=== PATIENT | male | born 1965 | race Caucasian/White ===

== ENCOUNTER → 2021-01-28 | Outpatient (CLI) | payer OTHER | LOC: HEART CORB 08:30 | DX: I11.0 Hypertensive heart disease with heart failure (principal); I50.9 Heart failure, unspecified; R60.0 Localized edema; R06.02 Shortness of breath; I07.1 Rheumatic tricuspid insufficiency | CPT/HCPCS: 93306 ==

== ENCOUNTER → 2021-04-08 | Outpatient (CLI) | payer OTHER | LOC: HEART CORB 02-18 09:00 | DX: I50.32 Chronic diastolic (congestive) heart failure (principal); R07.2 Precordial pain; I10 Essential (primary) hypertension | CPT/HCPCS: 78452; A9502; J2785 ==